=== PATIENT | female | born 1945 | race Caucasian/White ===

== ENCOUNTER → 2023-08-18 15:01 | Outpatient (REF) | payer OTHER, SELFPAY | LOC: RAD 15:01 | PROVIDERS: ATTENDING PHYSICIAN Student in an Organized Health Care Education/Training Program | DX: R10.84 Generalized abdominal pain (principal) | CPT/HCPCS: 74177; Q9967 ==

== ENCOUNTER 2024-05-20 11:32 | Emergency (ER) | payer OTHER, SELFPAY ==
[2024-05-20 11:34] VITALS: BP 141/90
[2024-05-20 11:47] LABS: % Basophils 0.5 % (0-2); % Eosinophils 0.6 % (0-6); % Immature Granulocytes 0.4 % (0-0.5); % Lymphocytes 6.6 % (20.5-51.1); % Monocytes 3.1 % (1.7-9.3); % Neutrophils 88.8 % (42.2-75.2); Absolute Basophils 0.1 10^3/uL (0-0.2); Absolute Eosinophils 0.1 10^3/uL (0-0.7); Absolute Lymphocytes 0.6 10^3/uL (1.2-3.4); Absolute Monocytes 0.3 10^3/uL (0.1-0.6); Absolute Neutrophils 8.2 10^3/uL (1.4-6.5); Hematocrit 37.4 % (37.0-47.0); Hemoglobin 12.8 g/dL (12.0-16.0); Mean Corp Hgb Conc. 34.2 g/dL (33.0-37.0); Mean Corpuscular Hgb 30.5 pg (27.0-31.0); Mean Corpuscular Volume 89.3 fL (81.0-99.0); Mean Platelet Volume 8.7 fL (7.4-10.4); Nucleated Red Blood Cells % 0 %; Platelet Count 251 10^3/uL (130-400); Red Blood Cell Count 4.19 10^6/uL (4.20-5.40); Red Cell Dist. Width 12.6 % (11.5-14.5); White Blood Cell Count 9.3 10^3/uL (4.8-10.8)
[2024-05-20 11:53] VITALS: BP 142/111
[2024-05-20 12:00] VITALS: BP 165/76
[2024-05-20 12:07] LABS: ALT (SGPT) 34 U/L (0-35); AST (SGOT) 38 U/L (14-36); Albumin 4.6 g/dl (3.5-5.0); Alkaline Phosphatase 84 U/L (38-126); Blood Urea Nitrogen 24 mg/dl (7-17); Calcium 9.3 mg/dl (8.4-10.2); Carbon Dioxide 29 mmol/L (22-30); Chloride 99 mmol/L (98-107); Glucose 155 mg/dl (70-99); Potassium 4.2 mmol/L (3.5-5.1); Sodium 135 mmol/L (135-145); Total Bilirubin 0.6 mg/dl (0.2-1.3); Total Protein 7.5 g/dl (6.3-8.2); eGFR > 60.00
--- NOTE | 2024-05-20 12:21 | ED.GENMED ---
History of Present Illness
General
Chief Complaint: Headache
Source: patient and ambulance crew
Exam Limitations: none
Time Seen by Provider: 05/20/24 12:11
Nursing documentation reviewed up to this point in time: agreed with
History of Present Illness
History of Present Illness:
78-year-old female presents to the emergency department via EMS due to a headache and vomiting since 4 AM. Her headache has been ongoing for about a week. It got worse this morning. She has a history of migraines. She called the ambulance to
take her to the hospital. She took her Fiorinal.
Past History
Past History
ED Past Medical History: CAD, GERD, HTN, Hypercholesterolemia, NIDDM and Other (Colon polyps, diverticulosis, osteopenia)
ED Past Surgical History: Appendectomy and Orthopedic
Social History
Tobacco: Non-smoker
Alcohol: None
Living: with family
Family History
Family History: Negative Diabetes, Hypertension or CAD
Review of Systems
Review of Systems
Allergies reviewed?: Yes
All Other Systems: Not applicable
Constitutional: Reports no symptoms; Denies fever
EENT: Reports no symptoms
Respiratory: Reports no symptoms
Cardiac: Reports no symptoms
ABD/GI: Reports nausea and vomiting
: Reports no symptoms
Musculoskeletal: Reports no symptoms
Skin: Reports no symptoms
Neurological: Reports no symptoms
Endocrine: Reports no symptoms
Hematologic/Lymphatic: Reports no symptoms
Psychiatric: Reports no symptoms
Phy Exam
Physical Exam
Physical Exam:
Physical Exam
General: no apparent distress, not acutely ill
Neck: supple. no meningeal signs. normal posterior pharynx
Heart: s1/s2 regular rate and rhythm, no murmur. equal radial
pulses.
HEENT: Pupils equal round reactive to light, EOMI
Lungs: no acute respiratory distress. clear bilaterally
Abdomen: normal bowel sounds. not tender. no CVAT
Neuro: alert and oriented. no focal neurological deficits cranial nerves II through XII intact
Skin: no rash
Psychiatric: well kept. interactive and cooperative
Extremities: no edema. no calf tenderness. negative homans. good distal pulses
Course
Orders/Labs/Results
Orders:
Orders
05/20/24 11:[address] [CT Head W/o Iv Contrast] Urgent
Comment:
Reason For Exam: headache
05/20/24 11:41
CMP [Comprehensive Metabolic Panel] Urgent
Complete Blood Count/With Diff Urgent
05/20/24 12:23
Diphenhydramine [Benadryl] 25 mg IV NOW STA
Prochlorperazine [Compazine] 10 mg IV NOW STA
05/20/24 14:13
Ketorolac [Toradol] 15 mg IV NOW STA
Abnormal Lab Results
05/20/24
11:41
RBC 4.19 L 10^6/uL
(4.20-5.40)
Absolute Neuts (auto) 8.2 H 10^3/uL
(1.4-6.5)
Absolute Lymphs (auto) 0.6 L 10^3/uL
(1.2-3.4)
Neutrophils % 88.8 H %
(42.2-75.2)
Lymphocytes % 6.6 L %
(20.5-51.1)
BUN 24 H mg/dl
(7-17)
Glucose 155 H mg/dl
(70-99)
AST 38 H U/L
(14-36)
05/20/24 11:41
05/20/24 11:41
Vital Signs
Initial and Last Documented VS:
Initial Vital Signs
Temp Pulse Resp BP Pulse Ox
98.3 F 84 18 141/90 98
05/20/24 11:34 12/21/24 11:34 05/20/24 11:34 05/20/24 11:34 05/20/24 11:34
Last Documented Vital Signs
Temp Pulse Resp BP Pulse Ox
98.3 F 84 18 156/77 100
05/20/24 11:34 05/20/24 11:34 05/20/24 11:34 05/20/24 13:35 05/20/24 12:15
MDM/Problems Addressed
Differential Diagnosis Includes:
Intracranial hemorrhage, tumor, migraine
MDM/Problems Addressed:
78-year-old female with headache, migraine versus cluster. Doubt CVA, intracranial hemorrhage or tumor. CT head no acute findings.
Chronic conditions affecting care: HTN and CAD
*Radiology
Radiology exam reviewed: radiology read reviewed (CT head no acute findings)
*Pulse Oximetry
Patient hypoxic: no
*EKG
Interpreted by ED Provider?: NA
*Dietetic Technician Registered Interpretation
Rate: Dietetic Technician Registered- N/A
*Critical Care Note
Total Time (30-74mins, 75-104mins- exclusive of procedures): Not Applicable
Patient Management
Social determinants of health affecting care: Living situation
Escalation/DeEscalation of care consider admission/obs:
Admission not indicated
ED Attending Note
-
Portions of this chart may have been created with voice recognition software.� Occasional wrong word or��sound alike� substitutions may have occurred due to the inherent limitations of voice recognition software.
Discharge Plan
Departure
Patient Disposition: Home (Routine Discharge)
Date of Disposition: 05/20/24
Time of Disposition: 14:17
Patient with high blood pressure during this ER visit?: Yes
Condition: Good
Discharge Problem:
Headache
Instructions: Headache, Adult (DC), BLOOD PRESSURE
Prescriptions:
No Action
lorazepam 0.5 MG tablet
1 dose PO PRN PRN (Reason: prn)
losartan-hydrochlorothiazide 1 EACH tablet
1 tab PO DAILY
Patient Comments:
epgegkqajfw-ovnitfcfu-lmv C-Mn 1 CAP capsule
1,500 mg PO QPM
atorvastatin 20 MG tablet
20 mg PO QPM
metoprolol succinate 50 MG tablet extended release 24 hr
50 mg PO DAILY
aspirin 81 MG tablet,delayed release (DR/EC)
81 mg PO DAILY
cholecalciferol (vitamin D3) 2,000 UNITS tablet
2,000 unit PO QPM
omega 7-jog-teg-fish oil [Fish Oil] 1 EACH capsule
1 ea PO DAILY
clopidogrel [Plavix] 75 mg tablet
75 mg PO DAILY Qty: 30 0RF
Referrals:
UNKNOWN,NO INTERVIEW [Family Provider] -
Interventions
Interventions:
*Risk Screen - Suicide Last Done: 05/20/24 11:34
*General Assessment Last Done: 05/20/24 11:34
*Neglect/Abuse Screening Last Done: 05/20/24 11:34
ED- Fall Risk Assessment Last Done: 05/20/24 13:04
*ED COVID-19 Vaccine History Last Done: 05/20/24 11:34
ED- Neurological Assessment Last Done: 05/20/24 13:03
Discharge Date and Time
Print Language: SAMMARINESE
[2024-05-20] MEDS: BENADRYL 25 MG IV (12:54)
[2024-05-20] MEDS: COMPAZINE 10 MG IV (12:55)
[2024-05-20 13:35] VITALS: BP 156/77
[2024-05-20] MEDS: TORADOL 15 MG IV (14:17)
[2024-05-20 15:35] VITALS: BP 145/78
== END 2024-05-20 15:36 | disposition home or self-care (01) ==
LOC: EMR 11:32
PROVIDERS: EMERGENCY PHYSICIAN Emergency Medicine
DX: R51.9 Headache, unspecified (principal); I25.10 Atherosclerotic heart disease of native coronary artery without angina pectoris; K21.9 Gastro-esophageal reflux disease without esophagitis; E78.00 Pure hypercholesterolemia, unspecified; E11.9 Type 2 diabetes mellitus without complications; I10 Essential (primary) hypertension; Z90.49 Acquired absence of other specified parts of digestive tract
CPT/HCPCS: 99284; 96374; 96375; 70450; 80053; 85025

== ENCOUNTER → 2024-08-29 15:08 | Outpatient (REF) | payer OTHER, SELFPAY | LOC: WDC 15:08 | PROVIDERS: ATTENDING PHYSICIAN Student in an Organized Health Care Education/Training Program | DX: Z12.31 Encounter for screening mammogram for malignant neoplasm of breast (principal) | CPT/HCPCS: 77063; 77067 ==

== ENCOUNTER 2024-12-29 14:31 | Emergency (ER) | payer OTHER, SELFPAY ==
[2024-12-29 14:35] VITALS: BP 156/82
[2024-12-29 15:04] LABS: Urine Character Clear (Clear)
[2024-12-29 15:05] LABS: Hematocrit 34.0 % (37.0-47.0); Hemoglobin 11.5 g/dL (12.0-16.0); Mean Corp Hgb Conc. 33.8 g/dL (33.0-37.0); Mean Corpuscular Volume 90.4 fL (81.0-99.0); Nucleated Red Blood Cells % 0 %; Platelet Count 308 10^3/uL (130-400); Red Cell Dist. Width 11.9 % (11.5-14.5)
[2024-12-29 15:22] LABS: Urine White Cell 0-2 /HPF (0-5)
[2024-12-29 15:23] LABS: ALT (SGPT) 19 U/L (0-35); AST (SGOT) 24 U/L (14-36); Albumin 4.4 g/dl (3.5-5.0); Alkaline Phosphatase 58 U/L (38-126); Blood Urea Nitrogen 19 mg/dl (7-17); Calcium 9.3 mg/dl (8.4-10.2); Carbon Dioxide 28 mmol/L (22-30); Chloride 101 mmol/L (98-107); Glucose 120 mg/dl (70-99); Potassium 3.9 mmol/L (3.5-5.1); Sodium 137 mmol/L (135-145); Total Protein 7.4 g/dl (6.3-8.2); eGFR 50.48
[2024-12-29 17:39] VITALS: BP 135/83
--- NOTE | 2024-12-29 18:10 | ED.GENMED ---
History of Present Illness
<JENNIE Galindo - Last Filed: 12/30/24 09:11>
General
Chief Complaint: Abdominal Pain
Source: patient
Exam Limitations: none
Time Seen by Provider: 12/29/24 17:42
Nursing documentation reviewed up to this point in time: agreed with
History of Present Illness
History of Present Illness:
Patient is an 79-year-old female who presents to the ER for evaluation. Patient has had intermittent abdominal cramping since for the past 5 days. In addition she has had burning with urination. She was tested for urinalysis and placed on Bactrim
however her urinalysis came back negative. She also reports she is having bowel movements every 10 minutes which are not diarrhea she reports abdominal discomfort is lower abdomen. She denies any fever chills .she was nauseous with this.
Past History
<JENNIE Galindo - Last Filed: 12/30/24 09:11>
Past History
ED Past Medical History: CAD, GERD, HTN, Hypercholesterolemia, NIDDM and Other (Colon polyps, diverticulosis, osteopenia)
ED Past Surgical History: Appendectomy and Orthopedic
Social History
Tobacco: Non-smoker
Alcohol: None
Living: with family
Family History
Family History: Negative Diabetes, Hypertension or CAD
Phy Exam
<JENNIE Galindo - Last Filed: 12/30/24 09:11>
General Physical Exam
General Presentation: no apparent distress
General age: appears stated age
General Skin: warm and dry
General Habitus: normal
General Mental: alert
General Hydration: appears well hydrated
Gastrointestinal Exam
Gastrointestinal Exam: soft and other (+ mild lower abd tenderness )
Neurological Exam
Neurological Exam: alert and oriented x3
Musculoskeletal Exam
Musculoskeletal Exam: full ROM
Skin Exam
Skin Exam: normal color and warm/dry
Psychiatric Exam
Psychiatric Exam: normal mood/affect
Course
<JENNIE Galindo - Last Filed: 12/30/24 09:11>
Orders/Labs/Results
Orders:
Orders
12/29/24 14:52
Complete Blood Count/With Diff Urgent
Comprehensive Metabolic Panel Urgent
Urinalysis Reflex To Culture Urgent
Date Specimen was Collected: 12/29/24
Time Specimen was Collected: 14:40
Urine Microscopic Reflex Cult Urgent
12/29/24 18:21
Iohexol [Omnipaque] See Protocol PO NOW STA
12/29/24 18:22
CT Abd/pel W Iv And Oral Contr Urgent
Comment:
Reason For Exam: lower abd pain
0.9% Sodium Chloride 1000 ml [Nss] 1,000 ml IV BOLUS
12/29/24 18:23
Ondansetron Injectable [Zofran] 4 mg IV NOW STA
12/29/24 20:09
Dicyclomine HCl [Bentyl] 20 mg IM NOW STA
12/29/24 22:52
Amoxicillin 875 mg/Clav 125 mg [Augmentin 875 mg/125 mg] 1 tablet PO NOW STA
Abnormal Lab Results
12/29/24
14:52
WBC 11.0 H 10^3/uL
(4.8-10.8)
RBC 3.76 L 10^6/uL
(4.20-5.40)
Hgb 11.5 L g/dL
(12.0-16.0)
Hct 34.0 L %
(37.0-47.0)
Absolute Neuts (auto) 9.4 H 10^3/uL
(1.4-6.5)
Absolute Lymphs (auto) 0.8 L 10^3/uL
(1.2-3.4)
Absolute Monos (auto) 0.7 H 10^3/uL
(0.1-0.6)
Neutrophils % 85.5 H %
(42.2-75.2)
Lymphocytes % 7.5 L %
(20.5-51.1)
BUN 19 H mg/dl
(7-17)
Creatinine 1.1 H mg/dL
(0.6-1.0)
Glucose 120 H mg/dl
(70-99)
Ur Occult Blood Reflex 1+ A
(Negative)
Urine RBC 3-6 A /HPF
(0-2)
Urine Bacteria (Reflex) Few A
(Negative)
Urine Albumin (Reflex) 1+ A
(Neg - Trace)
12/29/24 14:52
12/29/24 14:52
Vital Signs
Initial and Last Documented VS:
Initial Vital Signs
Temp Pulse Resp BP Pulse Ox
98.1 F 94 16 156/82 98
12/29/24 14:35 12/29/24 14:35 12/29/24 14:35 12/29/24 14:35 12/29/24 14:35
Last Documented Vital Signs
Temp Pulse Resp BP Pulse Ox
98.2 F 83 20 152/80 97
12/29/24 20:13 12/29/24 20:13 12/29/24 20:13 12/29/24 20:13 12/29/24 20:13
<NAUN Perry Jr.-Hardy - Last Filed: 12/29/24 22:56>
Orders/Labs/Results
Orders:
Orders
12/29/24 14:52
Complete Blood Count/With Diff Urgent
Comprehensive Metabolic Panel Urgent
Urinalysis Reflex To Culture Urgent
Date Specimen was Collected: 12/29/24
Time Specimen was Collected: 14:40
Urine Microscopic Reflex Cult Urgent
12/29/24 18:21
Iohexol [Omnipaque] See Protocol PO NOW STA
12/29/24 18:22
CT Abd/pel W Iv And Oral Contr Urgent
Comment:
Reason For Exam: lower abd pain
0.9% Sodium Chloride 1000 ml [Nss] 1,000 ml IV BOLUS
12/29/24 18:23
Ondansetron Injectable [Zofran] 4 mg IV NOW STA
12/29/24 20:09
Dicyclomine HCl [Bentyl] 20 mg IM NOW STA
12/29/24 22:52
Amoxicillin 875 mg/Clav 125 mg [Augmentin 875 mg/125 mg] 1 tablet PO NOW STA
Abnormal Lab Results
12/29/24
14:52
WBC 11.0 H 10^3/uL
(4.8-10.8)
RBC 3.76 L 10^6/uL
(4.20-5.40)
Hgb 11.5 L g/dL
(12.0-16.0)
Hct 34.0 L %
(37.0-47.0)
Absolute Neuts (auto) 9.4 H 10^3/uL
(1.4-6.5)
Absolute Lymphs (auto) 0.8 L 10^3/uL
(1.2-3.4)
Absolute Monos (auto) 0.7 H 10^3/uL
(0.1-0.6)
Neutrophils % 85.5 H %
(42.2-75.2)
Lymphocytes % 7.5 L %
(20.5-51.1)
BUN 19 H mg/dl
(7-17)
Creatinine 1.1 H mg/dL
(0.6-1.0)
Glucose 120 H mg/dl
(70-99)
Ur Occult Blood Reflex 1+ A
(Negative)
Urine RBC 3-6 A /HPF
(0-2)
Urine Bacteria (Reflex) Few A
(Negative)
Urine Albumin (Reflex) 1+ A
(Neg - Trace)
12/29/24 14:52
12/29/24 14:52
Vital Signs
Initial and Last Documented VS:
Initial Vital Signs
Temp Pulse Resp BP Pulse Ox
98.1 F 94 16 156/82 98
12/29/24 14:35 12/29/24 14:35 12/29/24 14:35 12/29/24 14:35 12/29/24 14:35
Last Documented Vital Signs
Temp Pulse Resp BP Pulse Ox
98.2 F 83 20 152/80 97
12/29/24 20:13 12/29/24 20:13 12/29/24 20:13 12/29/24 20:13 12/29/24 20:13
<JENNIE Galindo - Last Filed: 12/30/24 09:11>
MDM/Problems Addressed
Differential Diagnosis Includes:
Not limited to UTI, constipation, less likely bowel obstruction, diverticulitis, colitis
MDM/Problems Addressed:
Patient with lower abdominal pain with some urinary discomfort however negative urinalysis denies any recent fever chills. Patient complains of having frequent bowel movements and has lower abdominal tenderness on exam we will rule out
diverticulitis. Patient is afebrile no stools here no vomiting tolerating oral contrast well CT abdomen pending at this time. Care of patient transferred to [facility]
<JENNIE Galindo - Last Filed: 12/30/24 09:11>
*Radiology
Radiology exam reviewed: radiology read reviewed
*Pulse Oximetry
SaO2: 98
Oxygen Mode of Delivery: Room air
<Von Long Jr., PA-C - Last Filed: 12/29/24 22:56>
*Pulse Oximetry
Patient hypoxic: no (97)
*Critical Care Note
Total Time (30-74mins, 75-104mins- exclusive of procedures): Not Applicable
<Von Long Jr., PA-C - Last Filed: 12/29/24 22:56>
Update Note
Update Note:
CT resulted showing diverticulitis. Patient reassessed vital signs normal. Stable for outpatient treatment. Advised for dietary modification and antibiotics. Return precautions given. Advised for close outpatient follow-up.
ED Attending Note
<JENNIE Galindo - Last Filed: 12/30/24 09:11>
-
Portions of this chart may have been created with voice recognition software.� Occasional wrong word or��sound alike� substitutions may have occurred due to the inherent limitations of voice recognition software.
Discharge Plan
Departure
Patient Disposition: Home (Routine Discharge)
Date of Disposition: 12/29/24
Time of Disposition: 22:53
Patient with high blood pressure during this ER visit?: No
Condition: Good
Covid-19: Not Applicable
Discharge Problem:
Diverticulitis
Instructions: Diverticulitis (DC)
Prescriptions:
New
amoxicillin-pot clavulanate 875-125 mg tablet
1 tab PO BID 7 Days Qty: 14 0RF
No Action
lorazepam 0.5 MG tablet
1 dose PO PRN PRN (Reason: prn)
losartan-hydrochlorothiazide 1 EACH tablet
1 tab PO DAILY
Patient Comments:
ftgbbihoibq-ljzzfirup-oni C-Mn 1 CAP capsule
1,500 mg PO QPM
atorvastatin 20 MG tablet
20 mg PO QPM
metoprolol succinate 50 MG tablet extended release 24 hr
50 mg PO DAILY
aspirin 81 MG tablet,delayed release (DR/EC)
81 mg PO DAILY
cholecalciferol (vitamin D3) 2,000 UNITS tablet
2,000 unit PO QPM
omega 4-gcw-wyv-fish oil [Fish Oil] 1 EACH capsule
1 ea PO DAILY
clopidogrel [Plavix] 75 mg tablet
75 mg PO DAILY Qty: 30 0RF
Referrals:
Hanh Stevens MD [Family Provider, Internal Medicine]
Activity Restrictions/Additional Instructions:
You came to the emergency department today with concern of GI symptoms. You are found to have diverticulitis on CT scan. Please take it twice daily for the next week and follow-up close with your primary care doctor within the next week or so for
reassessment to ensure this is improving properly. Please slowly progress your diet over the next few days. Return for any worsening, new or concerning symptoms.
Interventions
Interventions:
*Risk Screen - Suicide Last Done: 12/29/24 14:39
*ED- Fall Risk Assessment Last Done: 12/29/24 18:47
*Nursing Disposition Last Done: 12/29/24 23:13
LB-Dexgnl-Ntqmoesitm Assessment Last Done: 12/29/24 18:16
Discharge Date and Time
Discharge Date/Time: 12/29/24 23:13
Print Language: CHINESE
[2024-12-29 18:19] VITALS: BMI 23.0
[2024-12-29] MEDS: NSS 1000 IV (18:33)
[2024-12-29] MEDS: ZOFRAN 4 MG IV (18:40)
[2024-12-29] MEDS: OMNIPAQUE 50 ML PO (18:40)
[2024-12-29 20:09] VITALS: BP 152/80
[2024-12-29 20:13] VITALS: BP 152/80
[2024-12-29] MEDS: BENTYL 20 MG IM (20:16)
[2024-12-29] MEDS: AUGMENTIN 875 MG/125 MG 1 TABLET PO (23:06)
== END 2024-12-29 23:13 | disposition home or self-care (01) ==
LOC: EMR 14:31
PROVIDERS: EMERGENCY PHYSICIAN Emergency Medicine; FAMILY PHYSICIAN Student in an Organized Health Care Education/Training Program; OTHER PHYSICIAN Internal Medicine Cardiovascular Disease; OTHER PHYSICIAN Internal Medicine Gastroenterology
DX: K57.32 Diverticulitis of large intestine without perforation or abscess without bleeding (principal); I25.10 Atherosclerotic heart disease of native coronary artery without angina pectoris; I10 Essential (primary) hypertension; E78.00 Pure hypercholesterolemia, unspecified; E11.9 Type 2 diabetes mellitus without complications; Z90.49 Acquired absence of other specified parts of digestive tract
CPT/HCPCS: 96374; 96372; 96361; 99284; 74177; 80053; 81003; 81015; 85025; Q9967

== ENCOUNTER 2025-01-04 05:07 | Inpatient (IN) | payer OTHER, SELFPAY ==
[2025-01-03 22:10] VITALS: BP 159/73
[2025-01-03 22:32] LABS: Hematocrit 36.4 % (37.0-47.0); Hemoglobin 12.5 g/dL (12.0-16.0); Mean Corp Hgb Conc. 34.3 g/dL (33.0-37.0); Mean Corpuscular Volume 88.3 fL (81.0-99.0); Nucleated Red Blood Cells % 0 %; Platelet Count 370 10^3/uL (130-400); Red Cell Dist. Width 11.9 % (11.5-14.5)
[2025-01-03 22:55] LABS: ALT (SGPT) 24 U/L (0-35); AST (SGOT) 33 U/L (14-36); Albumin 4.9 g/dl (3.5-5.0); Alkaline Phosphatase 71 U/L (38-126); Blood Urea Nitrogen 19 mg/dl (7-17); Calcium 10.2 mg/dl (8.4-10.2); Carbon Dioxide 26 mmol/L (22-30); Chloride 101 mmol/L (98-107); Glucose 119 mg/dl (70-99); Lipase 163 U/L (23-300); Potassium 4.0 mmol/L (3.5-5.1); Sodium 139 mmol/L (135-145); Total Protein 8.3 g/dl (6.3-8.2); eGFR 45.48
[2025-01-04] VITALS (13 sets, daily range): BP systolic 107–140; BP diastolic 54–76; BMI 20.5
[2025-01-04] MEDS: ZOSYN 50 IV ×4 (03:32→21:08)
--- NOTE | 2025-01-04 03:46 | ED.GENMED ---
History of Present Illness
General
Chief Complaint: Abdominal Pain
Source: patient
Exam Limitations: none
Time Seen by Provider: 01/04/25 00:10
Nursing documentation reviewed up to this point in time: agreed with
History of Present Illness
History of Present Illness:
79-year-old female presenting to the emergency department today with concerns of ongoing left-sided abdominal pain. Diagnosed with diverticulitis 1 week ago and has been taking Augmentin as prescribed.
Past History
Past History
ED Past Medical History: CAD, GERD, HTN, Hypercholesterolemia, NIDDM and Other (Colon polyps, diverticulosis, osteopenia)
ED Past Surgical History: Appendectomy and Orthopedic
Social History
Tobacco: Non-smoker
Alcohol: None
Living: with family
Family History
Family History: Negative Diabetes, Hypertension or CAD
Review of Systems
Review of Systems
Allergies reviewed?: Yes
All Other Systems: ROS reviewed and negative except as documented in HPI and ROS
Phy Exam
Physical Exam
Physical Exam:
GENERAL: Alert , in no apparent distress
EYE: pupils equal and reactive
NECK: Supple, no significant adenopathy.
ENT: o/p clr, mmm.
CARDIAC: Regular rate and rhythm .
LUNGS: Clear breath sounds bilaterally, no acute respiratory distress, no wheezes/rales/rhonchi
ABDOMEN: Left-sided abdominal pain to palpation right sided soft nontender
NEUROLOGICAL: Alert and oriented, no focal neuro deficits
SKIN: Warm and dry, skin intact.
MUSCULOSKELETAL: No edema, well perfused.
PSYCH: Normal and appropriate interaction.
Course
Orders/Labs/Results
Orders:
Orders
01/03/25 22:24
Complete Blood Count/With Diff Urgent
Comprehensive Metabolic Panel Urgent
Lactic Acid Urgent
Lipase Urgent
Blood Culture Urgent
PERRY Source: Blood/Venous
Specimen Description:
01/04/25 00:53
CT Abd/Pel (IV only)-DH only Urgent
Comment:
Reason For Exam: llq pain
01/04/25 00:59
Urinalysis Reflex To Culture Urgent
Piperacillin/Tazo 3.375 Gram [Zosyn] 3.375 gram in 50 ml IV NOW
01/04/25 03:30
Piperacillin/Tazo 3.375 Gram [Zosyn] 3.375 gram in 50 ml .ROUTE .STK-MED
Abnormal Lab Results
01/03/25
22:24
RBC 4.12 L 10^6/uL
(4.20-5.40)
Hct 36.4 L %
(37.0-47.0)
Lymphocytes % 20.4 L %
(20.5-51.1)
BUN 19 H mg/dl
(7-17)
Creatinine 1.2 H mg/dL
(0.6-1.0)
Glucose 119 H mg/dl
(70-99)
Total Protein 8.3 H g/dl
(6.3-8.2)
01/03/25 22:24
01/03/25 22:24
Vital Signs
Initial and Last Documented VS:
Initial Vital Signs
Temp Pulse Resp BP Pulse Ox
98.0 F 84 18 159/73 99
01/03/25 22:10 01/03/25 22:10 01/03/25 22:10 01/03/25 22:10 01/03/25 22:10
Last Documented Vital Signs
Temp Pulse Resp BP Pulse Ox
98.0 F 67 14 127/57 97
01/03/25 22:10 01/04/25 01:45 01/04/25 01:45 01/04/25 01:00 01/04/25 00:09
MDM/Problems Addressed
MDM/Problems Addressed:
79-year-old female presenting to the emergency department today with concerns of ongoing left sided abdominal pain. CT scan repeated as she recently had diverticulitis. No signs of complication but ongoing significant inflammation. Plan to treat
with IV antibiotics and admit.
*Pulse Oximetry
SaO2: 97
Oxygen Mode of Delivery: Room air
Patient hypoxic: no (97)
*Critical Care Note
Total Time (30-74mins, 75-104mins- exclusive of procedures): Not Applicable
ED Attending Note
-
Portions of this chart may have been created with voice recognition software.� Occasional wrong word or��sound alike� substitutions may have occurred due to the inherent limitations of voice recognition software.
Discharge Plan
Departure
Patient Disposition: Admit
Date of Disposition: 01/04/25
Time of Disposition: 03:49
Admit to: Med/Surg
Admit to doctor: Clary
Presentation/result/management discussed w/ accepting MD/DO: Hospitalist
Patient with high blood pressure during this ER visit?: No
Condition: Good
Covid-19: Not Applicable
Discharge Problem:
Diverticulitis
Prescriptions:
No Action
lorazepam 0.5 MG tablet
1 dose PO PRN PRN (Reason: prn)
losartan-hydrochlorothiazide 1 EACH tablet
1 tab PO DAILY
Patient Comments:
fwhpalszccz-vifrwebhh-lba C-Mn 1 CAP capsule
1,500 mg PO QPM
atorvastatin 20 MG tablet
20 mg PO QPM
metoprolol succinate 50 MG tablet extended release 24 hr
50 mg PO DAILY
aspirin 81 MG tablet,delayed release (DR/EC)
81 mg PO DAILY
cholecalciferol (vitamin D3) 2,000 UNITS tablet
2,000 unit PO QPM
omega 8-jnz-fqi-fish oil [Fish Oil] 1 EACH capsule
1 ea PO DAILY
clopidogrel [Plavix] 75 mg tablet
75 mg PO DAILY Qty: 30 0RF
amoxicillin-pot clavulanate 875-125 mg tablet
1 tab PO BID 7 Days Qty: 14 0RF
Referrals:
Hanh Stevens MD [Family Provider, Internal Medicine]
Interventions
Interventions:
*Risk Screen - Suicide Last Done: 01/04/25 00:07
*General Assessment Last Done: 01/03/25 22:10
*Neglect/Abuse Screening Last Done: 01/04/25 00:07
*ED- Fall Risk Assessment Last Done: 01/04/25 00:07
*ED COVID-19 Vaccine History Last Done: 01/04/25 00:07
SD-Kxyqhs-Hzbhplwwec Assessment Last Done: 01/04/25 00:07
Discharge Date and Time
Print Language: UPPER SORBIAN
--- NOTE | 2025-01-04 03:57 | HPS.HSE ---
Family Physician
-
Family Physician: Hanh Stevens MD
Chief Complaint
-
abdominal pain
History of Present Illness
This is a 79-year-old female with past medical history significant for hypertension, hyperlipidemia, CAD, type 2 diabetes who presents to the emergency department for ongoing abdominal pain after 1 week treatment with oral antibiotics without
colitis.
Patient was seen in the emergency department 1 week ago and diagnosed with uncomplicated diverticulitis. She was started Augmentin at that time. Patient reports that she has been compliant with Augmentin treatment and is continue to have symptoms.
She states she has not felt any better ever since she started antibiotics.
She has not had any fevers or chills. She is not having any nausea vomiting. She continues to have diarrhea with any p.o. intake which is the reason why she came in originally. She has bilateral lower quadrant abdominal pain. Patient also
reports history of what appears to be chronic intermittent diarrhea now. She reports episodes of diarrhea with food intake about twice a month lasting 2 days each and has been going on for 2 years. She has pending appointment with outpatient
delivery crew member.
Although she has diabetes she has not been on any antidiabetic medications due to low blood glucose with glipizide recently. She did not note that over the last 2 days her blood glucose has risen twice and is 160 at home.
In the emergency department temp was 98 Fahrenheit, blood pressure was 137/70 pulse of 61 she was satting 97% on room air.
CBC was completely unremarkable. Electrolytes BUN and creatinine were all normal. LFTs were unremarkable.
CT of the abdomen and pelvis continues to show severe inflammation
Medical History
Past Medical History
Past Medical History: Reports Other
Additional Past Medical History:
Hypertension
Diverticulosis
CAD s/p cardiac cath x 2
Osteopenia
Colon polyps
Atherosclerosis of aorta
Mixed hyperlipidemia
Type 2 diabetes mellitus without complication, without long-term current use of insulin
migraines
Past Surgical History: Reports Appendectomy and Orthopedic ( ORIF left wrist fracture December 2018, Dr. Simpson )
Social History
Tobacco: Non-smoker
Alcohol: None
Drug: None
Family History
Family History: Not pertinent
Allergies / Home Medications
Allergies reflects when Allergies were last updated in [facility].
Home Medications with original date entered in [facility]
Allergy/Medication List:
Allergies
Allergy/AdvReac Type Severity Reaction Status Date / Time
codeine Allergy Vomiting Verified 01/03/25 22:09
crab Allergy Nausea / Verified 01/03/25 22:09
Vomiting
epinephrine Allergy heart Verified 01/03/25 22:09
racing
Fish Containing Products Allergy Vomiting Verified 01/03/25 22:09
naproxen (From Naprosyn) Allergy Nausea / Verified 01/03/25 22:09
Vomiting
propoxyphene (From Darvon) Allergy shaking, Verified 01/03/25 22:09
vomiting
shellfish derived Allergy Vomiting Verified 01/03/25 22:09
Home Medications
lorazepam 0.5 mg tablet 1 dose PO PRN PRN prn 07/01/11
losartan 50 mg-hydrochlorothiazide 12.5 mg tablet 1 tab PO DAILY 09/20/13
nhbgjaybyyb-lsbfmwxuc-djg C-Mn 500 mg-400 mg capsule 1,500 mg PO QPM 11/13/15
aspirin 81 mg tablet,delayed release 81 mg PO DAILY 09/06/17
atorvastatin 20 mg tablet 20 mg PO QPM 09/06/17
cholecalciferol (vitamin D3) 50 mcg (2,000 unit) tablet 2,000 unit PO QPM 09/06/17
metoprolol succinate 50 mg tablet,extended release 24 hr 50 mg PO DAILY 09/06/17
omega 1-vfn-ziq-fish oil 300 mg-1,000 mg capsule (Fish Oil) 1 ea PO DAILY 09/06/17
clopidogrel 75 mg tablet (Plavix) 75 mg PO DAILY #30 tabs 04/20/22
amoxicillin 875 mg-potassium clavulanate 125 mg tablet 1 tab PO BID 7 days #14 tabs 12/29/24
Review of Systems
-
Constitutional: Reports No Symptoms
EENT: Reports No Symptoms
Respiratory: Reports No Symptoms
Cardiac: Reports No Symptoms
Abdomen/GI: Reports Abdominal Pain
: Reports No Symptoms
Musculoskeletal: Reports No Symptoms
Skin: Reports No Symptoms
Neurological: Reports No Symptoms
Endocrine: Reports No Symptoms
Hematologic/Lymphatic: Reports No Symptoms
Psych: Reports No Symptoms
Physical Exam
Vital Signs
Vital Signs
Temp Pulse Resp BP Pulse Ox
98.0 F 67 14 127/57 97
01/03/25 22:10 01/04/25 01:45 01/04/25 01:45 01/04/25 01:00 01/04/25 03:50
Physical Exam
General: Well Developed, Well Nourished and No Apparent Distress
HEENT: NormoCephalic, Moist mucous membranes and Atraumatic
Respiratory: Clear
Cardiac: S1/S2 and Regular Rhythm; No Murmur or Rub
GI: Soft, Non Tender, Non Distended and Normal Bowel Sounds; No Organomegaly
Rectal: Deferred by Provider
Musculoskeletal: No Clubbing, No Cyanosis and No Edema
Skin: No Rash
Neuro: AO x 3 and Nonfocal/grossly intact
Hematologic/Lymphatic: No Lymphadenopathy
Psych: Calm
Laboratory Results
-
01/03/25 22:24
01/03/25 22:24
Laboratory Results
Lactic Acid 1.2 mmol/L (0.7-2.0) 01/03/25 22:24
Total Bilirubin 0.9 mg/dl (0.2-1.3) 01/03/25 22:24
AST 33 U/L (14-36) 01/03/25 22:24
ALT 24 U/L (0-35) 01/03/25 22:24
Alkaline Phosphatase 71 U/L (38-126) 01/03/25 22:24
Lipase 163 U/L (23-300) 01/03/25 22:24
Data Reviewed
-
CT Scan: Report Reviewed by me
Lab Data: Labs Reviewed by me
Old Records: Reviewed
Impression/Plan
-
IMPRESSION:
Persistent diverticulitis, failure of outpatient antibiotics. No complication at this time and patient is well-appearing and in no acute distress. Hemodynamically stable afebrile with normal white count.
PLAN:
Acute diverticulitis
-Admit to MedSurg
-clears for now
-IV Zosyn
-Blood cultures afebrile
-Gentle hydration
-Continue oral medications
- given ongoing loose stooling, check cdiff
DM II
- sliding scale insulin for now
HTN
-Will continue losartan hydrochlorothiazide as well as metoprolol succinate at 25 mg daily. Continue Lipitor 80 mg.
DVT prophylaxis�Lovenox subcu
CODE STATUS�full code
[2025-01-04] MEDS: COZAAR 100 MG PO (08:09)
[2025-01-04] MEDS: TOPROL XL 25 MG PO (08:09)
[2025-01-04] MEDS: NSS 1000 IV ×2 (08:10→17:12)
[2025-01-04 08:13] LABS: Glucose - Point of Care 101 mg/dl (70-99)
--- NOTE | 2025-01-04 09:31 | W.PN.HOSP.TC ---
Today's Communication/Plan
-
See plan
Assessment / Plan
Assessment / Plan
Impression
Acute sigmoid diverticulitis.
Acute kidney injury, mild secondary to dehydration and thiazide diuretic.
Pancreatic cyst incidental finding on CT scan
Mild, chronic normocytic anemia
Conditions prior to admission:
Essential hypertension
Dyslipidemia
Prediabetes.
IBS-D
Plan
Acute sigmoid diverticulitis.
Presents to the emergency room on 12/29 with persistent lower quadrant abdominal pain and CT scan findings consistent with sigmoid diverticulitis without abscess. Discharge home on Augmentin. Had to come back to the emergency room with reports of no
relief and persistent symptoms including lower quadrant pain and diarrhea. Denies any fever. Denies hematochezia.
Repeat CT scan of the abdomen and pelvis on 01/03, findings consistent with sigmoid diverticulitis, improved as compared with the previous examination. No signs of abscess formation or abdominal extraluminal collection.
Current colonoscopy 2020 with diverticulosis
Patient reports improvement of abdominal pain and diarrhea since admission.
Continue clear liquid diet
Antibiotics have been expanded from Augmentin to Zosyn
If diarrhea, check stool for C. difficile and cultures
Gastroenterology consult
Mild normocytic anemia.
Check iron studies
Follow hemoglobin
Pancreatic tail cyst, small as an incidental finding on CT scan.
Will need follow-up imaging likely as outpatient
IBS-D
Patient could not recall taking dicyclomine which she is on her medication list
Check TSH
Acute kidney injury in the settings of persistent GI symptoms and thiazide diuretic
Hold HCTZ
Continue IV fluids
Follow BMP
Prediabetes.
Patient reports current hemoglobin A1c at 6.7.
Monitor blood glucose
Essential hypertension
Dyslipidemia.
Continue losartan metoprolol. Hold HCTZ.
Continue Lipitor
Anticipated Discharge: 24 - 48 hours
Subjective/Interval History
-
Date of Service: January 04, 2025
Objective Data
-
Labs:
Laboratory Results
01/03/25
22:24
WBC 7.4
Hgb 12.5
Hct 36.4 L
Plt Count 370 D
Sodium 139
Potassium 4.0
Chloride 101
Carbon Dioxide 26
BUN 19 H
Creatinine 1.2 H
Glucose 119 H
Calcium 10.2
Total Bilirubin 0.9
AST 33
ALT 24
Alkaline Phosphatase 71
Vital Signs:
Vital Signs
Temp Pulse Resp BP Pulse Ox
98.0 F 82 20 107/61 99
01/03/25 22:10 01/04/25 07:13 01/04/25 07:13 01/04/25 07:13 01/04/25 07:13
Physical Exam
-
General: Well Developed and No Apparent Distress
HEENT: Normocephalic, Atraumatic and Moist Mucous Membranes
Respiratory: Clear to Auscultation
Cardiac: Regular Rhythm and S1/S2; Negative Murmur, Rub or Gallop
GI: Soft, Nondistended, Normal Bowel Sounds and Other (Mild bilateral lower quadrant tenderness without rebound); Negative Organomegaly
Rectal: Deferred by Provider
Musculoskeletal: No Clubbing, No Cyanosis and No Edema
Skin: Negative Rash
Neuro: Nonfocal/Grossly Intact
[2025-01-04 10:26] LABS: Iron 77 ug/dl (37-170)
[2025-01-04 10:35] LABS: Total Iron Binding Capacity 356 ug/dl (265-497)
[2025-01-04 11:33] LABS: TSH 5.16 uIU/ml (0.47-4.68)
[2025-01-04 11:37] LABS: Ferritin 171.0 ng/ml (11.1-264.0)
[2025-01-04 12:06] LABS: Urine Character Clear (Clear)
[2025-01-04 12:17] LABS: Glycohemoglobin (HgbA1c) 6.7 % (4.0-5.6)
[2025-01-04 12:23] LABS: Urine Squamous Cell 26-30 /LPF (Few)
[2025-01-04 12:25] LABS: Glucose - Point of Care 97 mg/dl (70-99)
[2025-01-04 12:25] LABS: Urine White Cell 0-2 /HPF (0-5)
--- NOTE | 2025-01-04 13:18 | CON.GI ---
Addendum entered and electronically signed by Taryn Wheeler MD 01/04/25 14:52:
I saw and examined the patient.
The ENERGY MANAGEMENT SPECIALIST or PA's note was reviewed and I agree with the note.
Comment: 79-year-old female with history of hypertension, diabetes, IBS�D presenting with complaints of diarrhea since her recent diverticulitis treatment with antibiotics. Patient reports lower pelvic pain that started about 10 days ago, initially
had dysuria and was treated with Bactrim for possible UTI but subsequently pain got worse along with diarrhea symptoms, she came to the emergency room and had a CT scan of the abdomen pelvis that showed moderate to severe sigmoid diverticulitis and
a long segment of thickening in the sigmoid colon. Leukocytosis noted as well. She was treated with Augmentin for 7 days. Currently abdominal pain is improved but diarrhea continued. She reports having up to 8 loose watery nonbloody stool every
day without any nocturnal episodes, some discomfort in the lower abdomen prior to bowel movements. No nausea, vomiting, heartburn or trouble swallowing. No unintentional weight loss or NSAID use. No recent sick contacts. Patient reports her
normal bowel pattern is 1-2 bowel movements most days in a week but once every 2 to 3 weeks she would have 2 days of pure diarrhea. She has had previous testing with celiac panel, stool testing and colonoscopies with Dr. Rucker, negative workup
including biopsies negative for microscopic colitis. Celiac test negative as well.
Repeat abdominal CAT scan showing sigmoid diverticulitis improved without any abscess formation or collection. Extensive diverticulosis noted and incidental tiny focus along pancreatic tail, small cyst versus fatty interdigitation.. Mildly
elevated creatinine likely related to diarrhea.
- Diarrhea following recent antibiotic use for diverticulitis with baseline intermittent diarrhea as well
Rule out C. difficile versus antibiotic associated diarrhea versus other
Will check stool for culture, C. difficile, WBC, Cryptosporidium and Giardia
Clear liquid diet for now and advance as tolerated.
Will follow-up on stool studies.
- Recent sigmoid diverticulitis status post outpatient treatment with Augmentin.
Currently on Zosyn in the hospital.
Needs repeat colonoscopy 6 weeks post diverticulitis episode.
- Incidental small pancreatic cyst on CT scan
For a cyst that is small, no need for further evaluation at this time but this can be monitored as an outpatient with GI.
Original Note:
Consultation
-
Date/Time Consultation Requested: 01/04/25927
Date/Time Consultation Performed: 01/04/25 1245
Requesting Provider: Dr. Delgado
Performing Provider: Dr. Wheeler/JENNIE Blanc
Reason for Consultation: diverticulitis
Medical History
Chief Complaint / HPI
Chief Complaint: diarrhea
History of Present Illness:
79-year-old female past medical history of GERD, colon polyps, hypertension, CAD, diabetes, hyperlipidemia, diverticulitis, UTI, osteopenia, chronic intermittent diarrhea who presents to the emergency room after initially being treated for what she
thought was a UTI starting on 12/25/2024 with lower abdominal pain and cramping as well as dysuria. She saw her PCP who prescribed Bactrim. She states that she was called and told that she did not have a UTI however to complete the 5-day course of
Bactrim. She had loose stools with worsening abdominal cramping and discomfort. Leading her to come to the emergency room on 12/29/2024. The patient was afebrile however had a leukocytosis of 11.0. She had a CT of the abdomen and pelvis with IV
and oral contrast performed that showed a 10 cm long segment of sigmoid colon that had moderate to severe wall thickening with significant stranding of adjacent fat in the region with multiple diverticula compatible with diverticulitis. The patient
was discharged with prescription for Augmentin 875/125 twice daily for 7 days. The patient states that she was trying to tolerate things like rice and small amounts of food and liquid however had worsening loose stools progressing to diarrhea
multiple times a day soiling her carpets. Her abdominal pain went away. Because of the persistence of diarrhea she presented back to the emergency room on 01/04/2025. Patient denies any fevers, chills, nausea, vomiting, melena, hematochezia,
dysphagia or odynophagia. She denies any early satiety or unintended weight loss. Last p.o. intake was approximately 24 hours ago. She is getting ready to start clear liquids. She has not had any bowel movements since arrival. Repeat labs were
performed that showed WBC 7.4 (improvement), hemoglobin 12.5, hematocrit 36.4, platelets 370, sodium 139, potassium 4.0, BUN 19, creatinine 1.2, glucose 119, total bilirubin 0.9, AST 33, ALT 24, alk phos 71. Repeat CT abdomen and pelvis with IV
contrast only shows sigmoid diverticulitis improved compared with previous exam. No signs of abscess formation or abnormal extraluminal collections. Extensive colonic diverticulosis is seen previously. Incidentally tiny low-attenuation focus
along the pancreatic tail question small cyst (3 mm) or fatty interdigitation.
Past Medical History
Past Medical History: Other (GERD, colon polyps, hypertension, CAD, diabetes, hyperlipidemia, diverticulitis, UTI, osteopenia, chronic diarrhea)
Past Surgical History: Other (Cardiac cath, appendectomy, left wrist ORIF)
Social History
Tobacco: Non-Smoker
Alcohol: Occasional
Drug: None
Family History
Family History: Reviewed & Not Pertinent (No family history gastrointestinal malignancy or IBD)
Allergies / Home Medications
Allergy/AdvReac Type Severity Reaction Status Date / Time
codeine Allergy Vomiting Verified 01/03/25 22:09
crab Allergy Nausea / Verified 01/03/25 22:09
Vomiting
epinephrine Allergy heart Verified 01/03/25 22:09
racing
Fish Containing Products Allergy Vomiting Verified 01/03/25 22:09
naproxen (From Naprosyn) Allergy Nausea / Verified 01/03/25 22:09
Vomiting
propoxyphene (From Darvon) Allergy shaking, Verified 01/03/25 22:09
vomiting
shellfish derived Allergy Vomiting Verified 01/03/25 22:09
�Medication �Instructions �Recorded
wbnevqxunor-rtzzjnhjp-lxw C-Mn 500 1,500 mg PO QPM 11/13/15
mg-400 mg capsule
aspirin 81 mg tablet,delayed 81 mg PO DAILY 09/06/17
release
cholecalciferol (vitamin D3) 50 2,000 unit PO QPM 09/06/17
mcg (2,000 unit) tablet
omega 5-clg-cte-fish oil 300 1 cap PO DAILY 09/06/17
mg-1,000 mg capsule (Fish Oil)
amoxicillin 875 mg-potassium 1 tab PO BID 7 days #14 tabs 12/29/24
clavulanate 125 mg tablet
atorvastatin 80 mg tablet (Lipitor) 80 mg PO QPM 01/04/25
dicyclomine 20 mg tablet 20 mg PO TIDPRN PRN spasms 01/04/25
latanoprost 0.005 % eye drops 1 drp BOTH EYES HS 01/04/25
losartan 100 1 tab PO DAILY 01/04/25
mg-hydrochlorothiazide 25 mg tablet
metoprolol succinate 25 mg 25 mg PO DAILY 01/04/25
tablet,extended release 24 hr
(Toprol XL)
Review of Systems
-
All other systems: A 12 pt ROS was Negative except as stated above in HPI
Vital Signs
Temp Pulse Resp BP Pulse Ox
97.5 F 61 14 130/65 97
01/04/25 10:30 01/04/25 11:30 01/04/25 11:30 01/04/25 09:00 01/04/25 11:30
Physical Exam
Exam
General: No Apparent Distress
HEENT: Anicteric
Respiratory: Clear
Cardiac: Regular Rhythm
GI: Soft, Non Tender, Non Distended and Normal Bowel Sounds
Musculoskeletal: No Edema
Skin: Warm and Dry
Neuro: AO x 3
Psych: Calm
Results
WBC 7.4 10^3/uL (4.8-10.8) 01/03/25 22:24
Hgb 12.5 g/dL (12.0-16.0) 01/03/25 22:24
Hct 36.4 % (37.0-47.0) L 01/03/25:
MCV 88.3 fL (81.0-99.0) 01/03/25 22:
Plt Count 370 10^3/uL (130-400) D 01/03/25:
Absolute Neuts (auto) 5.3 10^3/uL (1.4-6.5) 01/03/25 22:24
Sodium 139 mmol/L (135-145) 01/03/25:
Potassium 4.0 mmol/L (3.5-5.1) 01/03/25:
Chloride 101 mmol/L (98-107) 01/03/25:
Carbon Dioxide 26 mmol/L (22-30) 01/03/25:
BUN 19 mg/dl (7-17) H 01/03/25:
Creatinine 1.2 mg/dL (0.6-1.0) H 01/03/25:
Calcium 10.2 mg/dl (8.4-10.2) 01/03/25:
Total Bilirubin 0.9 mg/dl (0.2-1.3) 01/03/25:
AST 33 U/L (14-36) 01/03/25:
ALT 24 U/L (0-35) 01/03/25:
Alkaline Phosphatase 71 U/L (38-126) 01/03/25 22:24
Lipase 163 U/L (23-300) 01/03/25 22:24
Diagnostic Image Results:
CT abdomen pelvis with IV contrast only 01/04/2025:
IMPRESSION:
1. Sigmoid diverticulitis, improved as compared with previous examination. No signs of abscess formation or abnormal extraluminal collection.
2. Extensive colonic diverticulosis as seen previously.
3. Incidental tiny low-attenuation focus along the pancreatic tail as above, question small cyst or fatty interdigitation.
CT abdomen and pelvis with oral and IV contrast 12/29/2024:
IMPRESSION: CT findings compatible with severe diverticulitis involving the sigmoid colon in the central and left pelvis. There is no evidence for abscess. There is no free intraperitoneal air.
Coronary artery calcifications are present. Please correlate with symptoms of and risk factors for coronary artery disease, with further workup as clinically appropriate.
Bony degenerative changes as described.
Prior GI Procedures:
EGD: 07/31/2021 (Rucker): - Abnormal esophageal motility, consistent with
presbyesophagus.
- Z-line regular, 34 cm from the incisors.
- Large hiatal hernia.
- Chronic gastritis. Biopsied.
- Normal third portion of the duodenum. Biopsie
Colonoscopy: 07/04/2020 (Rucker) - Diverticulosis in the sigmoid colon.
- One 3 mm polyp in the cecum, removed with a cold
biopsy forceps. Resected and retrieved.
- The examination was otherwise normal.
COLO 12/15/2016 (Rucker) - Diverticulosis in the sigmoid colon.
- One 5 mm polyp in the sigmoid colon, removed with a
hot snare. Resected and retrieved.
- The examination was otherwise normal.
EGD 07/27/2013 (Rucker) - Z-line regular, 37 cm from the incisors.
- Hiatus hernia.
- Acute gastritis. Biopsied.
- Normal 3rd part of the duodenum. Biopsied.
COLO 10/01/2011 - Diverticulosis in the sigmoid colon.
- One 3 mm polyp in the proximal ascending colon.
Resected and retrieved.
- One 4 mm polyp in the proximal transverse colon.
Resected and retrieved.
- Biopsies were taken with a cold forceps from the
cecum, ascending colon, transverse colon, left
transverse colon, sigmoid colon and rectum for
evaluation of microscopic colitis.
EGD 07/03/2011 - Normal esophagus. This was biopsied.
- Acute gastritis. This was biopsied.
- Normal 3rd part of the duodenum. Biopsy was performed.
- Biopsies were taken with a cold forceps for evaluation
of celiac disease.
Assessment / Plan
-
79-year-old female past medical history of GERD, colon polyps, hypertension, CAD, diabetes, hyperlipidemia, diverticulitis, UTI, osteopenia, chronic intermittent diarrhea who presents to the emergency room after initially being treated for what she
thought was a UTI starting on 12/25/2024 with lower abdominal pain and cramping as well as dysuria. Ultimately treated with Bactrim x 5 days with no improvement of symptoms. Went to the ER 12/29/2024 and diagnosed with acute diverticulitis
uncomplicated. Started on Augmentin 875/125 p.o. twice daily. With worsening diarrhea with improvement of abdominal pain. Came to the emergency room with watery stools with soilage of carpets. Was not taking any p.o. because of concerns of this.
Repeat CT imaging showing improving of diverticulitis. No leukocytosis.Incidental finding of 3 mm pancreatic cyst on imaging.
Impression:
Diverticulitis
Diarrhea
ALMA
Pancreatic cyst, 3 mm pancreatic tail seen on CT imaging with IV contrast
Plan:
-Stool for CDiff, stool WBC, Stool culture
-Continue zosyn (Has been on Abx for Diverticulitis since 12/29/24)
-Clear liquid diet, if without pain will be able to advance. Discussed with patient about low residue diet.
-Patient wishes to have follow up colonoscopy in the future.She will discuss with her primary [facility], . Discussed this cannot be performed for at least 2 months
-Likely no need to repeat any imaging on pancreatic cyst at this time.
-If with abdominal cramping can use Dicyclomine, has worked in the past with her.
-
-
Thank you for consultation and allowing me to participate in the patient's care. Please call the inventory control supervisor GI physician during the after hours with any questions or concerns.
[2025-01-04 16:36] LABS: Glucose - Point of Care 129 mg/dl (70-99)
[2025-01-04] MEDS: LOVENOX 30 MG SC (17:10)
[2025-01-04] MEDS: LIPITOR 20 MG PO (17:10)
[2025-01-04 21:39] LABS: Glucose - Point of Care 102 mg/dl (70-99)
[2025-01-05] MEDS: ZOSYN 50 IV ×2 (03:18→09:46)
[2025-01-05] MEDS: NSS 1000 IV (03:21)
[2025-01-05 07:10] VITALS: BP 128/59
[2025-01-05 07:14] LABS: Glucose - Point of Care 95 mg/dl (70-99)
[2025-01-05] MEDS: COZAAR 100 MG PO (08:13)
[2025-01-05] MEDS: TOPROL XL 25 MG PO (08:13)
[2025-01-05 10:22] LABS: Hematocrit 31.9 % (37.0-47.0); Hemoglobin 11.0 g/dL (12.0-16.0); Mean Corp Hgb Conc. 34.5 g/dL (33.0-37.0); Mean Corpuscular Volume 87.9 fL (81.0-99.0); Platelet Count 285 10^3/uL (130-400); Red Cell Dist. Width 11.9 % (11.5-14.5)
[2025-01-05 11:35] LABS: Glucose - Point of Care 129 mg/dl (70-99)
[2025-01-05 11:38] LABS: ALT (SGPT) 20 U/L (0-35); AST (SGOT) 33 U/L (14-36); Albumin 3.6 g/dl (3.5-5.0); Alkaline Phosphatase 42 U/L (38-126); Blood Urea Nitrogen 7 mg/dl (7-17); Calcium 8.5 mg/dl (8.4-10.2); Carbon Dioxide 25 mmol/L (22-30); Chloride 107 mmol/L (98-107); Estimated Creatinine Clearance 46 ml/min; Glucose 167 mg/dl (70-99); Potassium 4.2 mmol/L (3.5-5.1); Sodium 137 mmol/L (135-145); Total Protein 6.1 g/dl (6.3-8.2); eGFR > 60.00
[2025-01-05] MEDS: NSS IV (12:45)
--- NOTE | 2025-01-05 13:01 | W.PN.GI.CBS2 ---
Today's Communication / Plan
-
low residual diet
Assessment / Plan
-
79-year-old female past medical history of GERD, colon polyps, hypertension, CAD, diabetes, hyperlipidemia, diverticulitis, UTI, osteopenia, chronic intermittent diarrhea who presents to the emergency room after initially being treated for what she
thought was a UTI starting on 12/25/2024 with lower abdominal pain and cramping as well as dysuria. Ultimately treated with Bactrim x 5 days with no improvement of symptoms. Went to the ER 12/29/2024 and diagnosed with acute diverticulitis
uncomplicated. Started on Augmentin 875/125 p.o. twice daily. With worsening diarrhea with improvement of abdominal pain. Came to the emergency room with watery stools with soilage of carpets. Was not taking any p.o. because of concerns of this.
Repeat CT imaging showing improving of diverticulitis. No leukocytosis.Incidental finding of 3 mm pancreatic cyst on imaging.
Impression:
Diverticulitis
Diarrhea
ALMA- resolved
Pancreatic cyst, 3 mm pancreatic tail seen on CT imaging with IV contrast
IBS-D
Plan:
Okay to advance to low residual diet. If tolerating ok to d/c
Continue antibiotics started by medical team.
If diarrhea persist stool studies for infection
Outpatient colonoscopy in 8 to 12 weeks.
Outpatient follow-up for pancreatic cyst noted in imaging
Total Time Spent with Patient (in minutes): 35
Subjective
Subjective
Date of Service: January 05, 2025
Denies any abdominal pain. No diarrhea since admission
Objective
Data Reviewed
Laboratory Data:
Laboratory Results
01/05/25 10:08
01/05/25 10:08
Laboratory Results
Total Bilirubin 0.7 mg/dl (0.2-1.3) 01/05/25 10:08
AST 33 U/L (14-36) 01/05/25 10:08
ALT 20 U/L (0-35) 01/05/25 10:08
Alkaline Phosphatase 42 U/L (38-126) 01/05/25 10:08
Lipase 163 U/L (23-300) 01/03/25 22:24
Vital Signs and I&O:
Vital Signs
Temp Pulse Resp BP Pulse Ox
97.8 F 57 16 163/62 96
01/05/25 07:10 01/05/25 08:13 01/05/25 07:10 01/05/25 08:13 01/05/25 07:10
I&O
01/04/25 01/05/25 01/06/25
06:59 06:59 06:59
Intake Total 1959
Balance 1959
Physical Exam
Physical Exam
GI: Soft, Non Distended and Non Tender
--- NOTE | 2025-01-05 13:33 | W.PN.HOSP.TC ---
Today's Communication/Plan
-
switch to Ceftriaxone and Flagyl
Adv to LRD and monitor
add on free t4
Can stop IVF, monitor Scr
Assessment / Plan
Assessment / Plan
Impression
Acute sigmoid diverticulitis.
Acute kidney injury, mild secondary to dehydration and thiazide diuretic.
Pancreatic cyst incidental finding on CT scan
Mild, chronic normocytic anemia
Conditions prior to admission:
Essential hypertension
Dyslipidemia
Prediabetes.
IBS-D
Plan
#Acute sigmoid diverticulitis.
Presents to the emergency room on 12/29 with persistent lower quadrant abdominal pain and CT scan findings consistent with sigmoid diverticulitis without abscess. Discharge home on Augmentin. Had to come back to the emergency room with reports of no
relief and persistent symptoms including lower quadrant pain and diarrhea. Denies any fever. Denies hematochezia.
Repeat CT scan of the abdomen and pelvis on 01/03, findings consistent with sigmoid diverticulitis, improved as compared with the previous examination. No signs of abscess formation or abdominal extraluminal collection.
Current colonoscopy 2020 with diverticulosis
Patient reports improvement of abdominal pain and diarrhea since admission.
Improved; Adv to LRD and monitor
Antibiotics have been expanded from Augmentin to Zosyn - Recently was on Augmentin with persistent diarrhea; I will switch to ceftriaxone and flagyl for hopeful transition to oral abx on dc
If diarrhea persists, check stool for C. difficile and cultures
Gastroenterology consult
Colonoscopy in 8-12 weeks
Mild normocytic anemia.
Follow hemoglobin
Outpt f/u
Pancreatic tail cyst, small as an incidental finding on CT scan.
Will need follow-up imaging likely as outpatient
IBS-D
Patient could not recall taking dicyclomine which she is on her medication list
TSH was checked on admission; Elevated - Add on free t4
Acute kidney injury in the settings of persistent GI symptoms and thiazide diuretic, resolved
Hold HCTZ
Continue IV fluids
Follow BMP
Prediabetes.
Patient reports current hemoglobin A1c at 6.7.
Monitor blood glucose
Essential hypertension
Dyslipidemia.
Continue losartan metoprolol. Hold HCTZ.
Continue Lipitor
DVT ppx - Lovenox
Anticipated Discharge: Within 24 hours
Subjective/Interval History
-
Date of Service: January 05, 2025
no diarrhea, advance to low residue diet
Objective Data
-
Labs:
Laboratory Results
01/05/25
10:08
WBC 4.7 L
Hgb 11.0 L
Hct 31.9 L
Plt Count 285 D
Sodium 137
Potassium 4.2
Chloride 107
Carbon Dioxide 25
BUN 7
Creatinine 0.8
Glucose 167 H
Calcium 8.5 D
Total Bilirubin 0.7
AST 33
ALT 20
Alkaline Phosphatase 42
Vital Signs:
Vital Signs
Temp Pulse Resp BP Pulse Ox
97.8 F 57 16 163/62 96
01/05/25 07:10 01/05/25 08:13 01/05/25 07:10 01/05/25 08:13 01/05/25 07:10
I&O
01/04/25 01/05/25 01/06/25
06:59 06:59 06:59
Intake Total 1959
Balance 1959
Review of Systems
-
History Source: Patient
All other systems: Not reviewed unless documented
Physical Exam
-
General: Well Developed and No Apparent Distress
HEENT: Normocephalic, Atraumatic and Moist Mucous Membranes
Respiratory: Clear to Auscultation
Cardiac: Regular Rhythm and S1/S2; Negative Murmur, Rub or Gallop
GI: Soft, Nondistended and Normal Bowel Sounds; Negative Organomegaly
Rectal: Deferred by Provider
Musculoskeletal: No Clubbing, No Cyanosis and No Edema
Skin: Negative Rash
Neuro: Nonfocal/Grossly Intact
Data Reviewed
-
CT Scan: Report Reviewed by me
Labs: Labs Reviewed by me
[2025-01-05] MEDS: ROCEPHIN 1000 MG IV (14:50)
[2025-01-05] MEDS: STERILE WATER FOR INJECTION 10 ML IV (14:51)
[2025-01-05 15:10] VITALS: BP 113/78
--- NOTE | 2025-01-05 15:51 | CM ---
CM reviewed chart, patient seen bedside, initial assessment completed. Patient resides independently in a multiple level home, bedroom on second floor, full flight to second floor, six steps to enter home. Patient denies DME in the home, denies
VN/SNF history. Patient confirms PCP Hanh Stevens, pharmacy [facility] in [place], confirms prescription coverage. CM will continue to follow for all discharge planning needs.
Plan; home no needs anticipated
[2025-01-05 16:29] LABS: Glucose - Point of Care 120 mg/dl (70-99)
[2025-01-05] MEDS: LOVENOX 30 MG SC (17:28)
[2025-01-05] MEDS: LIPITOR 20 MG PO (17:28)
[2025-01-05] MEDS: FLAGYL 500 MG PO (19:49)
[2025-01-05 20:49] LABS: Glucose - Point of Care 117 mg/dl (70-99)
[2025-01-05 22:37] VITALS: BP 133/65
[2025-01-06 07:00] VITALS: BP 156/75
[2025-01-06 07:30] LABS: Glucose - Point of Care 103 mg/dl (70-99)
[2025-01-06] MEDS: FLAGYL 500 MG PO ×2 (07:35→19:59)
[2025-01-06] MEDS: COZAAR 100 MG PO (07:35)
[2025-01-06] MEDS: TOPROL XL 25 MG PO (07:35)
[2025-01-06 08:23] LABS: Hematocrit 32.2 % (37.0-47.0); Hemoglobin 10.9 g/dL (12.0-16.0); Mean Corp Hgb Conc. 33.9 g/dL (33.0-37.0); Mean Corpuscular Volume 89.2 fL (81.0-99.0); Platelet Count 299 10^3/uL (130-400); Red Cell Dist. Width 11.7 % (11.5-14.5)
[2025-01-06 08:55] LABS: ALT (SGPT) 18 U/L (0-35); AST (SGOT) 25 U/L (14-36); Albumin 3.6 g/dl (3.5-5.0); Alkaline Phosphatase 52 U/L (38-126); Blood Urea Nitrogen 7 mg/dl (7-17); Calcium 8.9 mg/dl (8.4-10.2); Carbon Dioxide 27 mmol/L (22-30); Chloride 106 mmol/L (98-107); Estimated Creatinine Clearance 52 ml/min; Glucose 108 mg/dl (70-99); Potassium 3.7 mmol/L (3.5-5.1); Sodium 139 mmol/L (135-145); Total Protein 6.2 g/dl (6.3-8.2); eGFR > 60.00
--- NOTE | 2025-01-06 09:11 | W.PN.HOSP.TC ---
Today's Communication/Plan
-
c/w IV Abx
c/w low residue diet
Add PRN Dicyclomine
Assessment / Plan
Assessment / Plan
Physical Exam
-
General: Well Developed and No Apparent Distress
HEENT: Normocephalic, Atraumatic and Moist Mucous Membranes
Respiratory: Clear to Auscultation
Cardiac: Regular Rhythm and S1/S2; Negative Murmur, Rub or Gallop
GI: Soft, Nondistended and Normal Bowel Sounds; not tender but she said it was uncomfortable
Rectal: No bleeding
Musculoskeletal: No Clubbing, No Cyanosis and No Edema
Skin: Negative Rash
Neuro: Nonfocal/Grossly Intact
Psych: calm, pleasant.
Impression
Acute sigmoid diverticulitis.
Acute kidney injury, mild secondary to dehydration and thiazide diuretic.
Pancreatic cyst incidental finding on CT scan
Mild, chronic normocytic anemia
Conditions prior to admission:
Essential hypertension
Dyslipidemia
Prediabetes.
IBS-D
Plan
#Acute sigmoid diverticulitis.
Presents to the emergency room on 12/29 with persistent lower quadrant abdominal pain and CT scan findings consistent with sigmoid diverticulitis without abscess. Discharge home on Augmentin. Had to come back to the emergency room with reports of no
relief and persistent symptoms including lower quadrant pain and diarrhea. Denies any fever. Denies hematochezia.
Repeat CT scan of the abdomen and pelvis on 01/03, findings consistent with sigmoid diverticulitis, improved as compared with the previous examination. No signs of abscess formation or abdominal extraluminal collection.
Current colonoscopy 2020 with diverticulosis
Patient reported improvement of abdominal pain and diarrhea since admission.
Improved; Adv to LRD and monitor
Antibiotics have been expanded from Augmentin to Zosyn - Recently was on Augmentin with persistent diarrhea; ceftriaxone and Flagyl for hopeful transition to oral abx on dc
Gastroenterology consulted,
Colonoscopy in 8-12 weeks
Mild normocytic anemia.
Follow hemoglobin
Outpt f/u
Pancreatic tail cyst, small as an incidental finding on CT scan.
Will need follow-up imaging likely as outpatient
IBS-D
Add PRN Dicyclomine
TSH was checked on admission; Elevated - Add on free t4
Acute kidney injury in the settings of persistent GI symptoms and thiazide diuretic, resolved
Held HCTZ
s/p IVF
Prediabetes.
Patient reports current hemoglobin A1c at 6.7.
Monitor blood glucose
Essential hypertension
Dyslipidemia.
Continue losartan metoprolol. Held HCTZ. Can resume
Continue Lipitor
DVT ppx - Lovenox
Total time spent to see the patient, examine the patient, review data and lab results, discuss treatment plan with patient, nursing staff around 55 minutes
Anticipated Discharge: 24 - 48 hours
Subjective/Interval History
-
Date of Service: January 06, 2025
Objective Data
-
Labs:
Laboratory Results
01/06/25
07:22
WBC 4.7 L
Hgb 10.9 L
Hct 32.2 L
Plt Count 299
Sodium 139
Potassium 3.7
Chloride 106
Carbon Dioxide 27
BUN 7
Creatinine 0.7
Glucose 108 H
Calcium 8.9
Total Bilirubin 0.5
AST 25
ALT 18
Alkaline Phosphatase 52
Vital Signs:
Vital Signs
Temp Pulse Resp BP Pulse Ox
98 F 61 16 156/75 99
01/06/25 07:00 01/06/25 07:00 01/06/25 07:00 01/06/25 07:00 01/06/25 07:00
I&O
01/05/25 01/06/25 01/07/25
06:59 06:59 06:59
Intake Total 1960 / 1960 1250 / 1250
Balance 1959 1250 / 1250
[2025-01-06 12:53] LABS: Glucose - Point of Care 105 mg/dl (70-99)
[2025-01-06] MEDS: STERILE WATER FOR INJECTION 10 ML IV (13:22)
[2025-01-06] MEDS: ROCEPHIN 1000 MG IV (13:22)
--- NOTE | 2025-01-06 14:31 | W.PN.GI.CBS2 ---
Today's Communication / Plan
-
Cholestyramine daily
Imodium as needed
Probiotic
Assessment / Plan
-
79-year-old female past medical history of GERD, colon polyps, hypertension, CAD, diabetes, hyperlipidemia, diverticulitis, UTI, osteopenia, chronic intermittent diarrhea who presents to the emergency room after initially being treated for what she
thought was a UTI starting on 12/25/2024 with lower abdominal pain and cramping as well as dysuria. Ultimately treated with Bactrim x 5 days with no improvement of symptoms. Went to the ER 12/29/2024 and diagnosed with acute diverticulitis
uncomplicated. Started on Augmentin 875/125 p.o. twice daily. With worsening diarrhea with improvement of abdominal pain. Came to the emergency room with watery stools with soilage of carpets. Was not taking any p.o. because of concerns of this.
Repeat CT imaging showing improving of diverticulitis. No leukocytosis.Incidental finding of 3 mm pancreatic cyst on imaging.
Impression:
Diverticulitis- repeat CT this admission improving of diverticulitis
Diarrhea- post prandial
ALMA- resolved
Pancreatic cyst, 3 mm pancreatic tail seen on CT imaging with IV contrast
hx of IBS-D
Plan:
Studies negative for C. difficile/crypto/Giardia. Stool culture pending
Her current symptoms -postprandial loose stools likely secondary to a prior history of IBS-D versus post antibiotic versus post colitis
Lactose-free low-fat diet
Will start on daily cholestyramine (she was on cholestyramine as outpatient)
Imodium as needed
Probiotics
Continue antibiotics started by medical team for diverticulitis
Outpatient colonoscopy in 8 to 12 weeks.
Outpatient follow-up for pancreatic cyst noted in imaging
Total Time Spent with Patient (in minutes): 35
Subjective
Subjective
Date of Service: January 06, 2025
Patient is claiming she has been having loose stools after meals. Denies any severe abdominal pain.
Objective
Data Reviewed
Laboratory Data:
Laboratory Results
01/06/25 07:22
01/06/25 07:22
Laboratory Results
Total Bilirubin 0.5 mg/dl (0.2-1.3) 01/06/25 07:22
AST 25 U/L (14-36) 01/06/25 07:22
ALT 18 U/L (0-35) 01/06/25 07:22
Alkaline Phosphatase 52 U/L (38-126) 01/06/25 07:22
Lipase 163 U/L (23-300) 01/03/25 22:24
Vital Signs and I&O:
Vital Signs
Temp Pulse Resp BP Pulse Ox
98 F 61 16 156/75 99
01/06/25 07:00 01/06/25 07:00 01/06/25 07:00 01/06/25 07:00 01/06/25 07:00
I&O
01/05/25 01/06/25 01/07/25
06:59 06:59 06:59
Intake Total 1959 1250 / 1250
Balance 1959 1250 / 1250
Physical Exam
Physical Exam
GI: Soft, Non Distended and Non Tender
[2025-01-06] MEDS: VISBIOME 1 CAP PO (14:38)
[2025-01-06] MEDS: QUESTRAN 4 GRAM PO (14:47)
[2025-01-06 15:00] VITALS: BP 143/60
[2025-01-06 17:08] LABS: Glucose - Point of Care 121 mg/dl (70-99)
[2025-01-06] MEDS: LOVENOX 30 MG SC (17:14)
[2025-01-06] MEDS: LIPITOR 20 MG PO (17:15)
[2025-01-06 20:49] LABS: Glucose - Point of Care 161 mg/dl (70-99)
[2025-01-06 23:54] VITALS: BP 149/69
[2025-01-07 07:00] VITALS: BP 141/68
[2025-01-07 07:54] LABS: Glucose - Point of Care 99 mg/dl (70-99)
[2025-01-07] MEDS: VISBIOME 1 CAP PO (07:55)
[2025-01-07] MEDS: TOPROL XL 25 MG PO (07:56)
[2025-01-07] MEDS: QUESTRAN 4 GRAM PO ×2 (07:56→20:40)
[2025-01-07] MEDS: FLAGYL 500 MG PO ×2 (07:56→20:39)
[2025-01-07] MEDS: COZAAR 100 MG PO (07:56)
[2025-01-07] MEDS: IMODIUM 2 MG PO ×3 (08:00→20:39)
--- NOTE | 2025-01-07 09:01 | W.PN.HOSP.TC ---
Addendum entered and electronically signed by Mitch Frank MD 01/07/25 12:58:
Addendum
Discussed with GI physician
Patient declined to go home citing frequent loose stools. Patient has chronic diarrhea/IBS-D
Suggested to increase Questran dose and use Imodium.
End
Total time spent to see the patient, examine the patient, review data and lab results, discuss treatment plan with patient, GI doctor, nursing staff around 55 minutes
Original Note:
Today's Communication/Plan
-
dc home if ok with GI
Assessment / Plan
Assessment / Plan
Physical Exam
-
General: Well Developed and No Apparent Distress
HEENT: Normocephalic, Atraumatic and Moist Mucous Membranes
Respiratory: Clear to Auscultation
Cardiac: Regular Rhythm and S1/S2; Negative Murmur, Rub or Gallop
GI: Soft, Nondistended and Normal Bowel Sounds; not tender but she said it was uncomfortable
Rectal: No bleeding
Musculoskeletal: No Clubbing, No Cyanosis and No Edema
Skin: Negative Rash
Neuro: Nonfocal/Grossly Intact
Psych: calm, pleasant.
Impression
Acute sigmoid diverticulitis.
Acute kidney injury, mild secondary to dehydration and thiazide diuretic.
Pancreatic cyst incidental finding on CT scan
Mild, chronic normocytic anemia
Conditions prior to admission:
Essential hypertension
Dyslipidemia
Prediabetes.
IBS-D
Plan
#Acute sigmoid diverticulitis.
No abdominal pain
No tenderness in abdomen on exam
No fevers
Normal WBC
Tolerating diet, no N/V
dc on Augmentin , Imodium, Questran
f/w GI in OP
Mild normocytic anemia.
Follow hemoglobin
Outpt f/u
Pancreatic tail cyst, small as an incidental finding on CT scan.
Will need follow-up imaging likely as outpatient
IBS-D
Add PRN Dicyclomine and Imodium
TSH was checked on admission; Elevated - Add on free t4
Acute kidney injury in the settings of persistent GI symptoms and thiazide diuretic, resolved
Held HCTZ
s/p IVF
Prediabetes.
Patient reports current hemoglobin A1c at 6.7.
Monitor blood glucose
Essential hypertension
Dyslipidemia.
Continue losartan metoprolol. Held HCTZ. Can resume
Continue Lipitor
DVT ppx - Lovenox
Total discharge time spent to see the patient, examine the patient, review data and lab results, discuss discharge plan with patient, GI doctor, nursing staff around 76 minutes
Anticipated Discharge: Today
Subjective/Interval History
-
Date of Service: January 07, 2025
No abdominal pain
No sob
Tolerating diet
Still with same frequent stools
Objective Data
-
Vital Signs:
Vital Signs
Temp Pulse Resp BP Pulse Ox
98.3 F 59 16 141/68 99
01/07/25 07:00 01/07/25 07:00 01/07/25 07:00 01/07/25 07:00 01/07/25 07:00
I&O
01/06/25 01/07/25 01/08/25
06:59 06:59 06:59
Intake Total 1250 / 1250 960 / 960
Balance 1250 / 1250 960 / 960
--- NOTE | 2025-01-07 11:08 | W.PN.GI.CBS2 ---
Today's Communication / Plan
-
Cholestyramine twice daily
Continue Imodium/probiotic
Assessment / Plan
-
79-year-old female past medical history of GERD, colon polyps, hypertension, CAD, diabetes, hyperlipidemia, diverticulitis, UTI, osteopenia, chronic intermittent diarrhea who presents to the emergency room after initially being treated for what she
thought was a UTI starting on 12/25/2024 with lower abdominal pain and cramping as well as dysuria. Ultimately treated with Bactrim x 5 days with no improvement of symptoms. Went to the ER 12/29/2024 and diagnosed with acute diverticulitis
uncomplicated. Started on Augmentin 875/125 p.o. twice daily. With worsening diarrhea with improvement of abdominal pain. Came to the emergency room with watery stools with soilage of carpets. Was not taking any p.o. because of concerns of this.
Repeat CT imaging showing improving of diverticulitis. No leukocytosis.Incidental finding of 3 mm pancreatic cyst on imaging.
Impression:
Diverticulitis- repeat CT this admission improving of diverticulitis
Diarrhea- post prandial
ALMA- resolved
Pancreatic cyst, 3 mm pancreatic tail seen on CT imaging with IV contrast
hx of IBS-D
Plan:
Studies negative for C. difficile/crypto/Giardia. Stool culture pending
Her current symptoms -postprandial loose stools likely secondary to a prior history of IBS-D versus post antibiotic versus post colitis
Lactose-free low-fat diet
Will increase cholestyramine to bid (she was on cholestyramine as outpatient)
Imodium as needed
Probiotics
Continue antibiotics started by medical team for diverticulitis
Outpatient colonoscopy in 8 to 12 weeks.
Outpatient follow-up for pancreatic cyst noted in imaging
Total Time Spent with Patient (in minutes): 35
Subjective
Subjective
Date of Service: January 07, 2025
Patient continues to experience postprandial loose stools. 4 BMs this a.m. already. Denies any abdominal pain/nausea vomiting
Objective
Data Reviewed
Laboratory Data:
Laboratory Results
01/06/25 07:22
01/06/25 07:22
Laboratory Results
Total Bilirubin 0.5 mg/dl (0.2-1.3) 01/06/25 07:22
AST 25 U/L (14-36) 01/06/25 07:22
ALT 18 U/L (0-35) 01/06/25 07:22
Alkaline Phosphatase 52 U/L (38-126) 01/06/25 07:22
Lipase 163 U/L (23-300) 01/03/25 22:24
Vital Signs and I&O:
Vital Signs
Temp Pulse Resp BP Pulse Ox
98.3 F 59 16 141/68 99
01/07/25 07:00 01/07/25 07:00 01/07/25 07:00 01/07/25 07:00 01/07/25 07:00
I&O
01/06/25 01/07/25 01/08/25
06:59 06:59 06:59
Intake Total 1250 / 1250 960 / 960
Balance 1250 / 1250 960 / 960
Physical Exam
Physical Exam
GI: Soft, Non Distended and Non Tender
[2025-01-07 11:47] LABS: Glucose - Point of Care 104 mg/dl (70-99)
[2025-01-07] MEDS: STERILE WATER FOR INJECTION 10 ML IV (14:09)
[2025-01-07] MEDS: ROCEPHIN 1000 MG IV (14:10)
[2025-01-07 15:25] VITALS: BP 147/70
[2025-01-07 16:10] LABS: Glucose - Point of Care 111 mg/dl (70-99)
[2025-01-07] MEDS: LIPITOR 20 MG PO (17:15)
[2025-01-07] MEDS: LOVENOX 30 MG SC (17:15)
[2025-01-07 21:50] LABS: Glucose - Point of Care 147 mg/dl (70-99)
[2025-01-07 22:35] VITALS: BP 145/69
[2025-01-07 23:30] VITALS: BP 155/75
[2025-01-08 07:00] VITALS: BP 149/67
[2025-01-08 07:01] LABS: Glucose - Point of Care 102 mg/dl (70-99)
[2025-01-08] MEDS: FLAGYL 500 MG PO (08:02)
[2025-01-08] MEDS: IMODIUM 2 MG PO ×2 (08:02→15:40)
[2025-01-08] MEDS: TOPROL XL 25 MG PO (08:02)
[2025-01-08] MEDS: COZAAR 100 MG PO (08:03)
[2025-01-08] MEDS: VISBIOME 1 CAP PO (08:03)
[2025-01-08] MEDS: QUESTRAN 4 GRAM PO (10:19)
[2025-01-08 10:25] LABS: ALT (SGPT) 39 U/L (0-35); AST (SGOT) 56 U/L (14-36); Albumin 4.3 g/dl (3.5-5.0); Alkaline Phosphatase 48 U/L (38-126); Blood Urea Nitrogen 6 mg/dl (7-17); Calcium 9.4 mg/dl (8.4-10.2); Carbon Dioxide 26 mmol/L (22-30); Chloride 106 mmol/L (98-107); Estimated Creatinine Clearance 46 ml/min; Glucose 153 mg/dl (70-99); Potassium 4.0 mmol/L (3.5-5.1); Sodium 140 mmol/L (135-145); Total Protein 7.0 g/dl (6.3-8.2); eGFR > 60.00
[2025-01-08 10:59] LABS: Hematocrit 37.0 % (37.0-47.0); Hemoglobin 12.4 g/dL (12.0-16.0); Mean Corp Hgb Conc. 33.5 g/dL (33.0-37.0); Mean Corpuscular Volume 90.7 fL (81.0-99.0); Platelet Count 351 10^3/uL (130-400); Red Cell Dist. Width 12.0 % (11.5-14.5)
[2025-01-08 11:15] LABS: Glucose - Point of Care 87 mg/dl (70-99)
--- NOTE | 2025-01-08 12:39 | W.PN.HOSP.TC ---
Addendum entered and electronically signed by Naveen Arboleda MD 01/08/25 15:35:
[id number]
Original Note:
Today's Communication/Plan
-
Abx course- total 10 days
Cholestyramine twice daily
Continue Imodium/probiotic
F/u GI outpatient
Colonoscopy outpatient
Pancreatic tail cyst, small as an incidental finding on CT scan - Will need follow-up imaging as outpatient
f/u pcp within 1 week
f/u cbc, cmp in 1 week
Assessment / Plan
Assessment / Plan
Physical Exam
-
General: Well Developed and No Apparent Distress
HEENT: Normocephalic, Atraumatic and Moist Mucous Membranes
Respiratory: Clear to Auscultation
Cardiac: Regular Rhythm and S1/S2; Negative Murmur, Rub or Gallop
GI: Soft, Nondistended and Normal Bowel Sounds; not tender but she said it was uncomfortable
Rectal: No bleeding
Musculoskeletal: No Clubbing, No Cyanosis and No Edema
Skin: Negative Rash
Neuro: Nonfocal/Grossly Intact
Psych: calm, pleasant.
Impression
Acute sigmoid diverticulitis.
Acute kidney injury, mild secondary to dehydration and thiazide diuretic.
Pancreatic cyst incidental finding on CT scan
Mild, chronic normocytic anemia
Conditions prior to admission:
Essential hypertension
Dyslipidemia
Prediabetes.
IBS-D
Plan
#Acute sigmoid diverticulitis.
Improved
Received ceftriaxone, Flagyl inpatient. Discharged on cefdinir and Flagyl to complete 10-day course total
Follow-up with GI for colonoscopy outpatient
Mild normocytic anemia.
Follow hemoglobin
Outpt f/u
Transaminitis
� Trend closely outpatient
Pancreatic tail cyst, small as an incidental finding on CT scan.
Will need follow-up imaging as outpatient
IBS-D, chronic
Add PRN Dicyclomine and Imodium
TSH was checked on admission; Elevated - Add on free t4�WNL
Cholestyramine twice daily
Continue Imodium/probiotic
Acute kidney injury in the settings of persistent GI symptoms and thiazide diuretic, resolved
Resume HCTZ
s/p IVF
f/u bmp in 1 week
Prediabetes.
Patient reports current hemoglobin A1c at 6.7.
Monitor blood glucose
Essential hypertension
Dyslipidemia.
Continue losartan metoprolol. HCTZ.
Continue Lipitor
DVT ppx - Lovenox
More than 30 minutes spent in discharge including
Final examination of the patient
Summarizing hospital stay
Instructions for continuing care to all relevant caregivers
Preparation of discharge records, prescriptions, and referral forms
Total time spent (in minutes): 36
Anticipated Discharge: Today
Subjective/Interval History
-
Date of Service: January 08, 2025
No acute events overnight, loose bowels intermittently although improved
Objective Data
-
Labs:
Laboratory Results
01/08/25
08:57
WBC 5.6
Hgb 12.4
Hct 37.0
Plt Count 351
Sodium 140
Potassium 4.0
Chloride 106
Carbon Dioxide 26
BUN 6 L
Creatinine 0.8
Glucose 153 H
Calcium 9.4
Total Bilirubin 0.5
AST 56 H
ALT 39 H
Alkaline Phosphatase 48
Vital Signs:
Vital Signs
Temp Pulse Resp BP Pulse Ox
97.7 F 62 16 149/67 97
01/08/25 07:00 01/08/25 08:02 01/08/25 07:00 01/08/25 08:02 01/08/25 07:00
I&O
01/07/25 01/08/25 01/09/25
06:59 06:59 06:59
Intake Total 960 / 960 780 / 780
Balance 960 / 960 780 / 780
Review of Systems
-
History Source: Patient
All other systems: Not reviewed unless documented
Physical Exam
-
General: Well Developed and No Apparent Distress
HEENT: Normocephalic, Atraumatic and Moist Mucous Membranes
Respiratory: Clear to Auscultation
Cardiac: Regular Rhythm and S1/S2; Negative Murmur, Rub or Gallop
GI: Soft, Nondistended and Normal Bowel Sounds; Negative Organomegaly
Rectal: Deferred by Provider
Musculoskeletal: No Clubbing, No Cyanosis and No Edema
Skin: Negative Rash
Neuro: Nonfocal/Grossly Intact
--- NOTE | 2025-01-08 12:44 | W.DS.TRANS ---
DC Summary - Food Safety Coordinator
-
Discharge Instructions:
Discharge Diagnosis/Procedures Acute diverticulitis, resolving. Finish course
of antibiotic and follow-up with your GI doctor.
Acute on chronic irritable bowel syndrome with
diarrhea. You can take 1 to 2 pills of Imodium
prior to attending events or a trip.
Diet Low Fiber,Low Residue,Low Fat,Low Cholesterol
Activity As tolerated
Blood Work F/u CBC and CMP (Including LFTs) in 1 week
Others Tests Incidental tiny low-attenuation focus along the
pancreatic tail as above, question small cyst or
fatty interdigitation. F/u outpatient GI for
further imaging if needed
Instructions:
Stand-Alone Forms:
Changes to Home Medications: Yes
Discharge Medications:
DC Medications w/original date entered in [employer]
mdqjqknjssf-xiqmqhqyv-axq C-Mn 500 mg-400 mg capsule 1,500 mg PO QPM Supplement 11/13/15
aspirin 81 mg tablet,delayed release 81 mg PO DAILY Blood Clot Prevention/Tx 09/06/17
cholecalciferol (vitamin D3) 50 mcg (2,000 unit) tablet 2,000 unit PO QPM Supplement 09/06/17
omega 4-oww-wax-fish oil 300 mg-1,000 mg capsule (Fish Oil) 1 cap PO DAILY Supplement 09/06/17
atorvastatin 80 mg tablet (Lipitor) 80 mg PO QPM High Cholesterol 01/04/25
dicyclomine 20 mg tablet 20 mg PO TIDPRN PRN spasms 01/04/25
latanoprost 0.005 % eye drops 1 drp BOTH EYES HS Eye Condition 01/04/25
losartan 100 mg-hydrochlorothiazide 25 mg tablet 1 tab PO DAILY Blood Pressure 01/04/25
metoprolol succinate 25 mg tablet,extended release 24 hr (Toprol XL) 25 mg PO DAILY Blood Pressure 01/04/25
Lactobac/Bifidobac [Visbiome] 1 cap PO DAILY #30 ea 01/07/25
cholestyramine (with sugar) 4 gram powder for susp in a packet 1 ea PO BID #60 ea 01/07/25
loperamide 2 mg capsule 2 mg PO Q6HPRN PRN diarrhea #60 caps 01/07/25
cefdinir 300 mg capsule 300 mg PO Q12H 7 days #14 caps 01/08/25
metronidazole 500 mg tablet 500 mg PO BID 7 days #14 tabs 01/08/25
Home Medication Changes
Lactobac/Bifidobac [Visbiome] 1 cap PO DAILY #30 ea 01/07/25
cholestyramine (with sugar) 4 gram powder for susp in a packet 1 ea PO BID #60 ea 01/07/25
loperamide 2 mg capsule 2 mg PO Q6HPRN PRN diarrhea #60 caps 01/07/25
cefdinir 300 mg capsule 300 mg PO Q12H 7 days #14 caps 01/08/25
metronidazole 500 mg tablet 500 mg PO BID 7 days #14 tabs 01/08/25
Pending Results: No
--- NOTE | 2025-01-08 13:05 | CM ---
CM reviewed chart, patient seen bedside, for discharge today. Patient denies needs upon discharge, reports she will transport herself home. IMM verbally reviewed, provided with copy, placed in chart. Patient reports she has had excellent care at
[facility] and is very grateful. CM will continue to follow for all discharge planning needs.
Plan; home no needs
[2025-01-08] MEDS: ROCEPHIN 1000 MG IV (13:51)
[2025-01-08] MEDS: STERILE WATER FOR INJECTION 10 ML IV (13:51)
--- NOTE | 2025-01-08 14:08 | W.PN.GI.CBS2 ---
Today's Communication / Plan
-
outpatient GI follow up
Assessment / Plan
-
79-year-old female past medical history of GERD, colon polyps, hypertension, CAD, diabetes, hyperlipidemia, diverticulitis, UTI, osteopenia, chronic intermittent diarrhea who presents to the emergency room after initially being treated for what she
thought was a UTI starting on 12/25/2024 with lower abdominal pain and cramping as well as dysuria. Ultimately treated with Bactrim x 5 days with no improvement of symptoms. Went to the ER 12/29/2024 and diagnosed with acute diverticulitis
uncomplicated. Started on Augmentin 875/125 p.o. twice daily. With worsening diarrhea with improvement of abdominal pain. Came to the emergency room with watery stools with soilage of carpets. Was not taking any p.o. because of concerns of this.
Repeat CT imaging showing improving of diverticulitis. No leukocytosis.Incidental finding of 3 mm pancreatic cyst on imaging.
Impression:
Diverticulitis- repeat CT this admission improving of diverticulitis
Diarrhea- post prandial
ALMA- resolved
Pancreatic cyst, 3 mm pancreatic tail seen on CT imaging with IV contrast
hx of IBS-D
Plan:
Studies negative for C. difficile/crypto/Giardia. Stool culture -negative
Her current symptoms -postprandial loose stools likely secondary to a prior history of IBS-D versus post antibiotic versus post colitis
Lactose-free low-fat diet
d/c on cholestyramine to bid (she was on cholestyramine as outpatient)/ Imodium as needed/ Probiotics
Complete antibiotics started by medical team for diverticulitis
Outpatient colonoscopy in 8 to 12 weeks.
Outpatient follow-up for pancreatic cyst noted in imaging
Total Time Spent with Patient (in minutes): 35
Subjective
Subjective
Date of Service: January 08, 2025
Only 1 loose BM after meals this a.m.
Objective
Data Reviewed
Laboratory Data:
Laboratory Results
01/08/25 08:57
01/08/25 08:57
Laboratory Results
Total Bilirubin 0.5 mg/dl (0.2-1.3) 01/08/25 08:57
AST 56 U/L (14-36) H 01/08/25 08:57
ALT 39 U/L (0-35) H 01/08/25 08:57
Alkaline Phosphatase 48 U/L (38-126) 01/08/25 08:57
Lipase 163 U/L (23-300) 01/03/25 22:24
Vital Signs and I&O:
Vital Signs
Temp Pulse Resp BP Pulse Ox
97.7 F 62 16 149/67 97
01/08/25 07:00 01/08/25 08:02 01/08/25 07:00 01/08/25 08:02 01/08/25 07:00
I&O
01/07/25 01/08/25 01/09/25
06:59 06:59 06:59
Intake Total 960 / 960 780 / 780
Balance 960 / 960 780 / 780
Physical Exam
Physical Exam
GI: Soft, Non Distended and Non Tender
[2025-01-08 15:00] VITALS: BP 139/65
[2025-01-08 16:24] LABS: Glucose - Point of Care 114 mg/dl (70-99)
== END 2025-01-08 17:51 | disposition home or self-care (01) | DRG 392 ==
LOC: 4 WEST ACU 05:07
PROVIDERS: Physician Assistant; Student in an Organized Health Care Education/Training Program; ADMITTING PHYSICIAN Internal Medicine; ATTENDING PHYSICIAN Internal Medicine; CONSULT PHYSICIAN Internal Medicine Gastroenterology; EMERGENCY PHYSICIAN Emergency Medicine; FAMILY PHYSICIAN Student in an Organized Health Care Education/Training Program
DX: K57.32 Diverticulitis of large intestine without perforation or abscess without bleeding (principal); N17.9 Acute kidney failure, unspecified; K86.2 Cyst of pancreas; K58.0 Irritable bowel syndrome with diarrhea; K21.9 Gastro-esophageal reflux disease without esophagitis; I10 Essential (primary) hypertension; I25.10 Atherosclerotic heart disease of native coronary artery without angina pectoris; E78.2 Mixed hyperlipidemia; G43.909 Migraine, unspecified, not intractable, without status migrainosus; I70.0 Atherosclerosis of aorta; M85.80 Other specified disorders of bone density and structure, unspecified site; E86.0 Dehydration; D64.9 Anemia, unspecified; R73.03 Prediabetes; R74.01 Elevation of levels of liver transaminase levels; Z86.0100 Personal history of colon polyps, unspecified; Z88.5 Allergy status to narcotic agent; Z88.6 Allergy status to analgesic agent; Z90.49 Acquired absence of other specified parts of digestive tract; Z79.82 Long term (current) use of aspirin; Z79.02 Long term (current) use of antithrombotics/antiplatelets; Z79.899 Other long term (current) drug therapy
CPT/HCPCS: 74177; 80053; 81003; 81015; 82728; 82962; 83036; 83540; 83550; 83605; 83690; 84439; 84443; 85025; 85027; 87040; 87045; 87046; 87324; 87328; 87329; 87427; 87449; 89055; Q9967

== ENCOUNTER → 2025-03-19 15:04 | Outpatient (REF) | payer OTHER, SELFPAY | LOC: RCS 15:04 | PROVIDERS: ATTENDING PHYSICIAN Internal Medicine Cardiovascular Disease; FAMILY PHYSICIAN Student in an Organized Health Care Education/Training Program | DX: R01.1 Cardiac murmur, unspecified (principal) | CPT/HCPCS: 93306 ==

== ENCOUNTER → 2025-05-15 08:26 | Outpatient (REF) | payer OTHER, SELFPAY | LOC: RAD 08:26 | PROVIDERS: ATTENDING PHYSICIAN Student in an Organized Health Care Education/Training Program | DX: M79.89 Other specified soft tissue disorders (principal) | CPT/HCPCS: 93971 ==